=== PATIENT | male | born 1960 | race Caucasian/White ===

== ENCOUNTER 2021-03-10 00:20 | Emergency (ER) | payer OTHER ==
[~2021-03-10] VITALS: Ht 180.3 cm; Wt 117.9 kg
[2021-03-10 00:30] VITALS: BP 148/59
--- NOTE | 2021-03-10 00:30 | NUR ---
BIBA FROM HOME C/O ORAL INJURY WITH ACTIVE BLEEDING. BLEEDING UNCONTROLLED. HAS BEEN BLEEDING THE LAST 2 HOURS ALONG WITH "CLOTS" ACCORDING TO PATIENT. PATIENT IS DIAPHORETIC, WEAKNESS, NAUSEA, AND DIZZINESS. PATIENT WAS AT [facility] ON TUESDAY, BRUISING STARTED ON TUESDAY, THEN BLEEDING STARTED AT AROUND 2200. PATIENT DENIES PAIN BUT FEELS DISCOMFORT AND UNCOMFORTABILITY. BG 252. AAOX4. TACHYCARDIC. PMH: EPILEPSY, DM, HTN, BRAIN SURGERY, AORTIC STENOSIS ALLERGIES: IDODINE
--- NOTE | 2021-03-10 00:33 | NUR ---
BIBA TO ER BED 3
--- NOTE | 2021-03-10 00:57 | NUR ---
[facility]LL[facility] [place] [phone]
[2021-03-10 01:20] LABS: BASOPHILS % (AUTO) 0.5 % (0.0-2.0); EOSINOPHILS % (AUTO) 0.4 % (0.0-4.0); HEMATOCRIT 32.3 % (36-52); HEMOGLOBIN 10.8 g/dL (12.0-18.0); LYMPHOCYTES # (AUTO) 1.2 K/uL (2.0-11.5); LYMPHOCYTES % (AUTO) 17.8 % (20.5-51.1); MEAN CORPUSCULAR HEMOGLOBIN 29 pg (27-31); MEAN CORPUSCULAR HGB CONC 34 g/dL (33-37); MEAN CORPUSCULAR VOLUME 86.2 fL (80-94); MONOCYTES # (AUTO) 0.9 K/uL (0.8-1.0); MONOCYTES % (AUTO) 12.4 % (1.7-9.3); NEUTROPHILS # (AUTO) 4.7 K/uL (1.8-7.7); NEUTROPHILS % (AUTO) 68.9 % (42.2-75.2); PLATELET COUNT (AUTO) 127 K/uL (140-450); RED BLOOD CELL COUNT(AUTO) 3.74 MIL/uL (4.20-6.10); RED CELL DISTRIBUTION WIDTH 15.3 % (11.6-13.7); WHITE BLOOD COUNT (AUTO) 6.9 K/uL (4.8-10.8)
[2021-03-10 01:35] LABS: ALBUMIN 3.5 g/dL (3.4-5.0); ANION GAP 15.3 (8-16); CARBON DIOXIDE 24.4 mmol/L (21-32); CREATININE 1.4 mg/dL (0.6-1.3); POTASSIUM 3.7 mmol/L (3.5-5.1); TOTAL BILIRUBIN 1.2 mg/dL (0.0-1.0)
[2021-03-10] MEDS ORDERED: ONDANSETRON 4 MG/2 ML VIAL ONE (01:46)
[2021-03-10] MEDS ORDERED: ONDANSETRON 4 MG/2 ML VIAL IVP ONE ×2 (02:35→05:20)
--- NOTE | 2021-03-10 03:30 | NUR ---
ERMD AT BEDSIDE DISCUSSING RESULTS AND PATIENT CARE FOR PATIENT.
--- NOTE | 2021-03-10 03:55 | NUR ---
PATIENT BP DECREASED, ERMD MADE AWARE.
[2021-03-10] MEDS ORDERED: NACL 0.9% 1,000 ML IV ONE ×2 (04:30)
[2021-03-10] MEDS ORDERED: TRANEXAMIC ACID 1,000 MG in NACL 0.9% 50 ML IV STA (04:34)
[2021-03-10] MEDS ORDERED: TRANEXAMIC ACID 1,000 MG/10 ML VIAL ONE (04:56)
--- NOTE | 2021-03-10 05:00 | NUR ---
PATIENT VOMITING BLOOD, ERMD MADE AWARE.
[2021-03-10] MEDS ORDERED: LIDOCAINE/EPI 1% 1:100000 20 ML VIAL INJ ONE (05:05)
[2021-03-10] MEDS ORDERED: PROCHLORPERAZINE 10 MG/2 ML VIAL IVP ONE (05:20)
[2021-03-10 06:01] VITALS: BP 96/61
--- NOTE | 2021-03-10 06:01 | NUR ---
Patient to be transferred to [facility]. Is being transferred due to HIGHER LEVEL OF CARE. Receiving facility has accepting physician and available space. ER physician has signed transfer form. Patient or responsible green party has agreed to transfer and signed form. Patient belongings inventoried and will be sent with patient. Copy of nursing notes, lab reports, EKG, Physicians Orders and X-rays to be sent with patient. Report called to ANNIKA GIRALDO at receiving facility. [facility] ambulance service has been called for transfer. ETA is 16.
== END 2021-03-10 06:01 | disposition short-term general hospital (02) ==
LOC: MED 00:20
DX: R04.1 Hemorrhage from throat (principal); R68.84 Jaw pain
CPT/HCPCS: 36415; 70487; 80053; 82948; 85025; 86886; 86900; 86901; 86920; 96361; 96374; 96375; 99291; 99292; J0780; J2405; J3490; J7030; Q9967; J2001